=== PATIENT | female | born 1995 | race African-American/Black ===

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

== ENCOUNTER → 2017-04-03 | Outpatient (CLI) | payer BC, OTHER | END | disposition home or self-care (01) | LOC: C.RDSM 11:56 | PROVIDERS: ATTEND Physical Medicine & Rehabilitation Sports Medicine | DX: M25.571 Pain in right ankle and joints of right foot (principal) ==

== ENCOUNTER → 2017-04-07 | Day surgery (SDC) | payer OTHER, BC ==
[2017-04-06 11:47] VITALS: Ht 167.6 cm; Wt 65.9 kg
[~2017-04-07] VITALS: Ht 167.6 cm; Wt 65.9 kg
[~2017-04-07] MED LIST changes: +ATROPINE SULFATE 0.1 MG/ML 5ML SYR IV PRN; +BUPIVACAINE/EPINEPHRINE 0.25% 10 ML VIAL ONE; +CEFAZOLIN 2000 MG/60 ML D5W IV SCH; +CEFTRIAXONE SOD 1 GM VIAL ONE; +CEFTRIAXONE SOD 2 GM VIAL IV ONE; +DEXAMETHASONE SOD INJ 4 MG/ML VIAL ONE; +EpHEDrine SULFATE INJ 50 MG/ML AMP IV PRN; +FENTANYL CITRATE INJ 50 MCG/1 ML 2 ML VIAL IV PRN; +FENTANYL CITRATE INJ 50 MCG/1 ML 2 ML VIAL ONE; +FLUMAZENIL 0.1 MG/1 ML 10 ML VIAL IV PRN; +HYDROmorphone INJ 1 MG/ML SYR ONE; +HYDROmorphone INJ 2 MG/ML SYR/VIAL IV PRN; +LABETALOL HCL IV 5 MG/ML 20ML IV PRN; +LACTATED RINGER'S 1000ML 1,000 ML IV SCH; +LIDOCAINE 2% 20 MG/ML 5ML SYR ONE; +LIDOCAINE HCL 2% 2 ML VIAL (20MG/ML) ONE; +MEPERIDINE HCL 25 MG/ML CARP IV PRN; +MIDAZOLAM HCL 1 MG/ML 2ML VIAL ONE; +NALOXONE HCL 0.4 MG/1 ML VIAL/CARP IV PRN; +ONDANSETRON INJ 2 MG/ML 2 ML VIAL IV PRN; +ONDANSETRON INJ 2 MG/ML 2 ML VIAL ONE; +OXYCODONE/ACETAMINOPHEN 5-325 TAB PO PRN; +PHENYLEPHRINE 100MCG/ML 5ML SYR IV PRN; +PROPOFOL IV EMULSION 10 MG/ML 20 ML VIAL IV ONE; +ROPIVACAINE 0.5% 5 MG/ML 30 ML VIAL ONE; +SCOPOLAMINE 1.5 MG TDSY TD ONE; +SODIUM CHLORIDE 0.9% 1000ML 1,000 ML IV SCH
--- NOTE | 2017-04-07 13:50 | [facility] Post Operative Brief Note ---
Immediate Operative Summary Operative Date Apr 07, 2017. Pre-Operative Diagnosis bimalleolar ankle fracture Post-Operative Diagnosis same Procedure(s) Performed ORIF medial and lateral malleoli Surgeon bela Professional Poker Player Surgeon(s) jose manuel Estimated Blood Loss 25cc Findings see op note Fluids (cc crystalloids) 1100cc Specimens none Drains none Anesthesia LMA/block Complication(s) None Disposition Recovery Room / PACU
--- NOTE | 2017-04-07 13:50 | History & Physical Bridge Note ---
H&P Re-Evaluation Bridge Note: I have examined the patient, reviewed the History & Physical and in the interval since the performance of the History & Physical I have noted the following changes of clinical significance: No changes noted
--- NOTE | 2017-04-07 13:51 | Discharge Instructions ---
Discharge Instructions Date of Service Apr 07, 2017. Visit Reason for Visit: Right Ankle Bimalleolar Fracture Dislocation Discharge Discharge Diagnosis / Problem: same Discharge Goals Goal(s): Decrease discomfort, Improve function Medications Stopped Medications Name(s): na Restart Stopped Medication(s): use scripts as directed Activity Recommendations Activity Limitations: as noted below Lifting Limitations: until after follow-up appointment Exercise/Sports Limitations: until after follow-up appointment May Resume Sexual Activity: after follow-up appointment Shower/Bathe: keep incision dry Driving or Machine Use: Weightbearing Status: Right non-weightbearing Anesthesia . Post Anesthesia Instructions: If you have had General Anesthesia or IV Sedation: * Do not drive today. * Resume driving when surgeon permits. * Do not make important decisions or sign legal documents today. * Call surgeon for: 1. Temperature elevations greater than 101 degrees F. 2. Uncontrollable pain. 3. Excessive bleeding. 4. Persistent nausea and vomiting. 5. Medication intolerance (nausea, vomiting or rash). * For nausea and vomiting use only clear liquids such as: tea, soda, bouillon until nausea subsides, then gradually increase diet as tolerated. * If you have any concerns or questions, call your surgeon's office. If physician is unavailable and it is an emergency, call 911 or go to the nearest emergency room. . Instructions / Follow-Up Instructions / Follow-Up DIET: * Resume previous diet. MEDICATIONS: * Please take your prescriptions as instructed at your pre-op appointment and/ or see medication discharge instructions listed above. * If concerns develop, call your physician's office at . SPECIAL CARE INSTRUCTIONS: * Ice/Elevate as instructed. * Keep dressing clean, dry, intact. * Your surgical extremity may be discolored due to prepping agents used on the skin. A bluish-green tint is a normal variant and should not cause alarm. Call your doctor at [phone] if: * Temperature above 101 degrees * Pain not relieved by pain medicine ordered * There is increased drainage or redness from any incision * You have any unanswered questions, problems or concerns. FOLLOW UP VISIT: * If not already scheduled, please call the office at to schedule a follow-up appointment. Diet Recommendations Recommended Home Diet: resume previous diet Procedures Procedures Performed: ORIF medial and lateral malleoli Pending Studies Studies pending at discharge: no Medical Emergencies . Who to Call and When: Medical Emergencies: If at any time you feel your situation is an emergency, please call 911 immediately. . Non-Emergent Contact Non-Emergency issues call your: Specialist Call Non-Emergent contact if: temperature is above 101.5, wound has increased drainage, wound has increased redness . . "Provider Documentation" section prepared by Anurag Barry. .
[2017-04-07 15:03] VITALS: TEMP 36.6
--- NOTE | 2017-04-07 15:27 | OPERATIVE REPORT ---
DATE OF OPERATION: 04/07/2017 PREOPERATIVE DIAGNOSIS: Bimalleolar ankle fracture dislocation, right lower extremity. POSTOPERATIVE DIAGNOSIS: Same. OPERATION PERFORMED: Open reduction internal fixation medial malleolus distal fibula with TightRope syndesmosis augmentation. SURGEON: Dr. Barry. CLOTH LAMINATING SUPERVISOR: Malachi Rogel PA-C. No resident or fellow available. 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. At this point in time, she was evaluated there and sent back here for her ankle to be fixed at her request. Preoperative assessment was consistent with a Muniz B fracture pattern. Options were discussed concerning potential need for syndesmosis fixation and try to avoid screw fixation if possible. She is getting ready for her upcoming season. She takes no medications, is on no control pills. DVT prophylaxis will be with Lovenox for several weeks postop. She will be strict nonweightbearing postop. Operation as noted above is open reduction internal fixation bimalleolar ankle fracture with a TightRope syndesmosis fixation. OPERATION AND FINDINGS: PROCEDURE: The patient appropriately identified, site verified, consent verified, 2 grams of Ancef confirmed as being given. The right lower extremity was prepped and draped in the usual routine fashion. Tourniquet was inflated to 275 mmHg after exsanguination of limb with a rubber Esmarch bandage for a total of approximately 80 minutes. Medial side was approached first. A curved incision was made over the anteromedial aspect of the medial malleolar fracture. The fracture was identified. It was elevated and opened. The periosteum that was incarcerated was elevated and the fracture was curetted clean and then temporarily provisionally fixed anatomically with 2 K-wires. Care was taken to protect the saphenous vein and nerve. Once it was verified that it was anatomically reduced two 4.0 partially threaded cancellous screws with washers were placed in the medial malleolus and fixed the fracture fragment anatomically and compressed it extremely well. This area was then irrigated and then closed using 2-0 Vicryl for the periosteum and full thickness horizontal mattress 3-0 nylon sutures for skin. The distal fibula was then approached through a straight lateral incision, full thickness flaps raised, fracture identified. It was curetted clean and then reduced and held with a clamp and then a 3.5 cortical screw anterior to posterior was placed and reduced the fracture anatomically and held it into position. An additional screw was then placed as well as 2 interfragmentary screws front to back varying in length from 16-18 mm. A one-third tubular 8-hole plate was then placed on the lateral aspect of the distal fibula, contoured and secured with 2 cancellous screws in the distal fragment with excellent purchase and then 3 cortical screws proximally. Once this was done, a cotton test was performed. It did not reveal any marked movement; however, due to high demand nature of the athlete a TightRope was placed through the plate through one of the holes in order to help assist any type of ligamentous sprain pattern that was there that would not be of surgical grade but of high grade enough to warrant some additional protection. Once this was done, there was no undue tension on the syndesmosis. The ankle could be dorsiflexed and plantarflexed with no issues. Strain test under fluoro revealed anatomic reductions and good stability of both fracture fragments. The wounds were irrigated with saline. Some periosteum and soft tissue closed over plate laterally with 2-0 Vicryl, 2-0 Vicryl and 2-0 plain for the subcutaneous tissue and stainless steel clips for skin laterally. Appropriate soft tissue dressing was applied. The patient will be nonweightbearing. DVT prophylaxis starts with Lovenox tomorrow. She will follow up in roughly 2-3 weeks for staple and suture removal. Keep present splint on the entire time. Pain management will be with Percocet and/or Ultram. SHE IS ALLERGIC TO NONSTEROIDALS. I attest to the content of the Intraoperative Record and any orders documented therein. Any exception s are noted below.
[2017-04-07 15:45] VITALS: BP 118/69; PULSE 75; O2SAT 100
--- NOTE | 2017-04-07 15:49 | Anesthesia Progress Nt - [facility] ---
Anesthesia Post Op Note Date & Time Apr 07, 2017 at 15:49 Vital Signs Pain Intensity: 4 Vital Signs Past 12 Hours Date Time Temp Pulse Resp B/P (MAP) Pulse Ox O2 Delivery O2 Flow Rate FiO2 04/07/17 15:45 75 20 118/69 (85) 100 Room Air 04/07/17 15:03 36.6 72 20 117/72 (87) 98 Room Air 04/07/17 15:00 120/68 04/07/17 14:58 61 11 97 04/07/17 14:58 61 11 04/07/17 14:57 64 11 98 04/07/17 14:57 65 11 04/07/17 14:56 136/72 04/07/17 14:55 36.5 71 20 136/72 98 Room Air 04/07/17 14:53 64 15 04/07/17 14:53 66 15 99 04/07/17 14:51 134/73 04/07/17 14:48 62 12 04/07/17 14:48 62 12 100 04/07/17 14:45 133/73 04/07/17 14:43 70 13 100 04/07/17 14:43 71 13 04/07/17 14:40 125/69 04/07/17 14:38 61 12 04/07/17 14:38 60 12 100 04/07/17 14:35 122/65 04/07/17 14:33 57 13 04/07/17 14:33 57 13 100 04/07/17 14:30 116/63 04/07/17 14:28 57 15 04/07/17 14:28 57 15 100 04/07/17 14:25 122/69 04/07/17 14:23 60 14 04/07/17 14:23 62 14 100 04/07/17 14:20 126/71 04/07/17 14:18 63 17 04/07/17 14:18 63 17 100 04/07/17 14:15 122/70 04/07/17 14:13 57 17 100 04/07/17 14:13 58 17 04/07/17 14:10 130/83 04/07/17 14:08 11 04/07/17 14:08 81 11 04/07/17 14:05 144/83 04/07/17 14:03 62 15 100 04/07/17 14:03 63 15 8/8/17 14:00 128/72 04/07/17 13:58 79 18 04/07/17 13:58 80 18 99 04/07/17 13:56 134/79 04/07/17 13:54 127/81 04/07/17 13:53 36.5 80 14 134/79 100 Diffusion Mask 6 04/07/17 11:55 69 16 120/63 (82) 100 Diffusion Mask 5 04/07/17 11:50 62 16 109/59 (76) 100 Diffusion Mask 5 04/07/17 11:45 62 12 108/50 (69) 100 Diffusion Mask 5 04/07/17 11:40 62 16 108/50 (69) 100 Diffusion Mask 5 04/07/17 11:40 57 16 115/51 (72) 100 Diffusion Mask 04/07/17 11:36 66 12 124/66 (85) 100 Diffusion Mask 5 04/07/17 11:36 66 12 124/66 (85) 100 Diffusion Mask 5 04/07/17 11:12 81 12 116/61 (79) 98 Diffusion Mask 5 04/07/17 11:06 36.8 79 16 116/61 (79) 99 Room Air Notes Mental Status: alert / awake / arousable, participated in evaluation Pt Amnestic to Procedure: Yes Nausea / Vomiting: adequately controlled Pain: adequately controlled Airway Patency, RR, SpO2: stable & adequate BP & HR: stable & adequate Hydration State: stable & adequate Anesthetic Complications: no major complications apparent
--- NOTE | 2017-04-08 13:26 | [facility] Operative Report ---
Operative Report Operative Date Apr 07, 2017. Pre-Operative Diagnosis Right bimalleolar ankle fracture Post-Operative Diagnosis Right same Procedure(s) Performed Right ankle ORIF medial and lateral malleoli Surgeon bela Supervisor Malt House Surgeon(s) jose manuel Estimated Blood Loss 25cc Findings Right ankle bimalleolar fracture Fluids (cc crystalloids) 1100cc Specimens none Anesthesia Gen. plus regional block Complication(s) None Disposition Recovery Room / PACU Indications This 22-year-old -[place] female presented to the office with complaints of right ankle pain after injuring herself while playing basketball. Preoperative Imaging was obtained elsewhere. She elected to proceed with surgical intervention after being educated about potential risks and outcomes. Description of Procedure Patient was administered a regional block and then taken to the operating room where she was given general anesthesia. She was prepped and draped in usual sterile fashion. Please see Dr. Barry's operative report for specifics of the procedure. I was present for the entire case from initial patient positioning through final wound closure. Assistance was provided in tissue traction, hemostasis, fracture reduction, hardware placement, and final wound closure. Patient was taken to the recovery room in satisfactory condition. I attest to the content of the Intraoperative Record and any orders documented therein. Any exceptions are noted below.
== END | disposition home or self-care (01) ==
LOC: X.SURG 10:42
PROVIDERS: ATTEND Physical Medicine & Rehabilitation Sports Medicine
DX: S82.841A Displaced bimalleolar fracture of right lower leg, initial encounter for closed fracture (principal); W50.0XXA Accidental hit or strike by another person, initial encounter; Y93.67 Activity, basketball

== ENCOUNTER → 2017-05-06 | Outpatient (CLI) | payer BC, OTHER ==
[~2017-05-06] MED LIST changes: -ATROPINE SULFATE 0.1 MG/ML 5ML SYR IV PRN; -BUPIVACAINE/EPINEPHRINE 0.25% 10 ML VIAL ONE; -CEFAZOLIN 2000 MG/60 ML D5W IV SCH; -CEFTRIAXONE SOD 1 GM VIAL ONE; -CEFTRIAXONE SOD 2 GM VIAL IV ONE; -DEXAMETHASONE SOD INJ 4 MG/ML VIAL ONE; -EpHEDrine SULFATE INJ 50 MG/ML AMP IV PRN; -FENTANYL CITRATE INJ 50 MCG/1 ML 2 ML VIAL IV PRN; -FENTANYL CITRATE INJ 50 MCG/1 ML 2 ML VIAL ONE; -FLUMAZENIL 0.1 MG/1 ML 10 ML VIAL IV PRN; -HYDROmorphone INJ 1 MG/ML SYR ONE; -HYDROmorphone INJ 2 MG/ML SYR/VIAL IV PRN; -LABETALOL HCL IV 5 MG/ML 20ML IV PRN; -LACTATED RINGER'S 1000ML 1,000 ML IV SCH; -LIDOCAINE 2% 20 MG/ML 5ML SYR ONE; -LIDOCAINE HCL 2% 2 ML VIAL (20MG/ML) ONE; -MEPERIDINE HCL 25 MG/ML CARP IV PRN; -MIDAZOLAM HCL 1 MG/ML 2ML VIAL ONE; -NALOXONE HCL 0.4 MG/1 ML VIAL/CARP IV PRN; -ONDANSETRON INJ 2 MG/ML 2 ML VIAL IV PRN; -ONDANSETRON INJ 2 MG/ML 2 ML VIAL ONE; -OXYCODONE/ACETAMINOPHEN 5-325 TAB PO PRN; -PHENYLEPHRINE 100MCG/ML 5ML SYR IV PRN; -PROPOFOL IV EMULSION 10 MG/ML 20 ML VIAL IV ONE; -ROPIVACAINE 0.5% 5 MG/ML 30 ML VIAL ONE; -SCOPOLAMINE 1.5 MG TDSY TD ONE; -SODIUM CHLORIDE 0.9% 1000ML 1,000 ML IV SCH; -TRAM-453 PO
== END | disposition home or self-care (01) ==
LOC: C.RDSM 04-20 09:52
PROVIDERS: ATTEND Physical Medicine & Rehabilitation Sports Medicine
DX: S82.842D Displaced bimalleolar fracture of left lower leg, subsequent encounter for closed fracture with routine healing (principal); X58.XXXD Exposure to other specified factors, subsequent encounter

== ENCOUNTER → 2017-10-02 | Outpatient (CLI) | payer BC, OTHER | END | disposition home or self-care (01) | LOC: C.RDSM 16:33 | PROVIDERS: ATTEND Physical Medicine & Rehabilitation Sports Medicine | DX: S82.842D Displaced bimalleolar fracture of left lower leg, subsequent encounter for closed fracture with routine healing (principal); X58.XXXD Exposure to other specified factors, subsequent encounter ==

== ENCOUNTER → 2017-11-17 | Day surgery (SDC) | payer BC, OTHER ==
[2017-11-16 08:04] VITALS: Ht 167.6 cm; Wt 65.9 kg
[~2017-11-17] VITALS: Ht 167.6 cm; Wt 65.9 kg
[~2017-11-17] MED LIST changes: +ATROPINE SULFATE 0.1 MG/ML 5ML SYR IV PRN; +BUPIVACAINE 0.5 % 5 MG/1 ML MPF 30ML VIAL ONE; +CEFAZOLIN 2000MG IV PUSH 15 ML IV SCH; +DEXAMETHASONE SOD INJ 4 MG/ML VIAL ONE; +EpHEDrine SULFATE INJ 50 MG/ML AMP IV PRN; +FENTANYL CITRATE INJ 50 MCG/1 ML 2 ML VIAL IV PRN; +FENTANYL CITRATE INJ 50 MCG/1 ML 2 ML VIAL ONE; +HYDROCODONE/ACETAMIN 5/325MG TAB ONE; +HYDROCODONE/ACETAMIN 5/325MG TAB PO PRN; +LACTATED RINGER'S 1000ML 1,000 ML IV SCH; +LIDOCAINE HCL 2% 2 ML VIAL (20MG/ML) ONE; +MIDAZOLAM HCL 1 MG/ML 2ML VIAL ONE; +ONDANSETRON INJ 2 MG/ML 2 ML VIAL IV PRN; +ONDANSETRON INJ 2 MG/ML 2 ML VIAL ONE; -OXYC-57 PO; +PROMETHAZINE HCL INJ 6.25 MG in SODIUM CHLORIDE 0.9% 50ML 50 ML IV PRN; +PROPOFOL IV EMULSION 10 MG/ML 20 ML VIAL IV ONE; +SODIUM CHLORIDE 0.9% 1000ML 1,000 ML IV SCH
--- NOTE | 2017-11-17 06:59 | History & Physical Bridge Note ---
H&P Re-Evaluation Bridge Note: I have examined the patient, reviewed the History & Physical and in the interval since the performance of the History & Physical I have noted the following changes of clinical significance: consent obtained.No changes noted
--- NOTE | 2017-11-17 07:00 | Discharge Instructions ---
Discharge Instructions Date of Service Nov 17, 2017. Visit Reason for Visit: Right Ankle Retained Hardware; S/P Fracture Discharge Discharge Diagnosis / Problem: same Discharge Goals Goal(s): Decrease discomfort Medications Stopped Medications Name(s): na Restart Stopped Medication(s): use all scripts as directed on labels Activity Recommendations Activity Limitations: as noted below Lifting Limitations: until after follow-up appointment Exercise/Sports Limitations: until after follow-up appointment May Resume Sexual Activity: after follow-up appointment Shower/Bathe: keep incision dry Weightbearing Status: Right weightbearing (as tolerated) Anesthesia . Post Anesthesia Instructions: If you have had General Anesthesia or IV Sedation: * Do not drive today. * Resume driving when surgeon permits. * Do not make important decisions or sign legal documents today. * Call surgeon for: 1. Temperature elevations greater than 101 degrees F. 2. Uncontrollable pain. 3. Excessive bleeding. 4. Persistent nausea and vomiting. 5. Medication intolerance (nausea, vomiting or rash). * For nausea and vomiting use only clear liquids such as: tea, soda, bouillon until nausea subsides, then gradually increase diet as tolerated. * If you have any concerns or questions, call your surgeon's office. If physician is unavailable and it is an emergency, call 911 or go to the nearest emergency room. . Instructions / Follow-Up Instructions / Follow-Up DIET: * Resume previous diet. MEDICATIONS: * Please take your prescriptions as instructed at your pre-op appointment and/ or see medication discharge instructions listed above. * If concerns develop, call your physician's office at . SPECIAL CARE INSTRUCTIONS: * Ice/Elevate as instructed. * Keep dressing clean, dry, intact. * Your surgical extremity may be discolored due to prepping agents used on the skin. A bluish-green tint is a normal variant and should not cause alarm. Call your doctor at [phone] if: * Temperature above 101 degrees * Pain not relieved by pain medicine ordered * There is increased drainage or redness from any incision * You have any unanswered questions, problems or concerns. FOLLOW UP VISIT: * If not already scheduled, please call the office at to schedule a follow-up appointment. Diet Recommendations Recommended Home Diet: resume previous diet Procedures Procedures Performed: removal of deep hardware Pending Studies Studies pending at discharge: no Medical Emergencies . Who to Call and When: Medical Emergencies: If at any time you feel your situation is an emergency, please call 911 immediately. . Non-Emergent Contact Non-Emergency issues call your: Specialist Call Non-Emergent contact if: temperature is above 101.5, wound has increased drainage, wound has increased redness . . "Provider Documentation" section prepared by Anurag Barry. .
--- NOTE | 2017-11-17 09:14 | [facility] Post Operative Brief Note ---
Immediate Operative Summary Operative Date Nov 17, 2017. Pre-Operative Diagnosis Right Ankle Retained Hardware S/P Fracture Post-Operative Diagnosis Same Procedure(s) Performed Right Ankle Hardware Removal Surgeon Dr. Barry [employer] Farmer Surgeon(s) Anu Rogel PA-C Estimated Blood Loss Trace Findings Consistent with Post-Op Diagnosis Fluids (cc crystalloids) 1300cc Specimens None Drains None Anesthesia Type General Complication(s) none Disposition Accompanied Pt To Recovery: no Disposition: Recovery Room / PACU
--- NOTE | 2017-11-17 09:23 | [facility] Operative Report ---
Operative Report Operative Date Nov 17, 2017. Pre-Operative Diagnosis Right Ankle Retained Hardware S/P Fracture Post-Operative Diagnosis Same Procedure(s) Performed Right Ankle Hardware Removal Surgeon Dr. Barry Ken[employer] Dealer Surgeon(s) Anu Rogel PA-C Estimated Blood Loss Trace Findings Retained hardware right ankle Fluids 1300cc Specimens None Drains None Anesthesia Type General Complication(s) none Disposition no Recovery Room / PACU Indications This 22-year-old -English female presented to the office with complaints of tenderness and sensitivity around her previous ankle ORIF hardware. She had tried conservative care measures without improvement. She elected to proceed with surgical intervention in hopes of alleviating her discomfort. Description of Procedure Patient was taken to the operating room where she was given general anesthesia and local anesthetic. She was prepped and draped in usual sterile fashion. Please see Dr. Barry's operative report for specifics of the procedure. I was present for the entire case from initial patient positioning through final wound closure. Assistance was provided in tissue retraction, hemostasis, hardware removal, in final wound closure. Patient was taken to the recovery room in satisfactory condition. I attest to the content of the Intraoperative Record and any orders documented therein. Any exceptions are noted below.
--- NOTE | 2017-11-17 09:38 | OPERATIVE REPORT ---
DATE OF OPERATION: 11/17/2017 SURGEON: Dr. Barry. ASISSTANT: Malachi Rogel PA-C. No resident or fellow available. PREOPERATIVE DIAGNOSIS: Status post bimalleolar ankle fracture dislocation, right lower extremity. POSTOPERATIVE DIAGNOSIS: Same. OPERATION PERFORMED: Removal of deep hardware medial and lateral and syndesmosis TightRope. PERIOPERATIVE SITUATION: Medically cleared female who has had ankle fracture dislocation bimalleolar that was treated as above. She went through whole basketball season with no issues, competed well. Has some pain over the hardware and wishes to have all the hardware removed for both physical and mental reasons. Options were discussed with her in detail. She wanted to proceed with surgical treatment and removal of all hardware. OPERATION: The patient was properly identified, site verified, consent verified, antibiotics confirmed as being given. The right lower extremity was prepped and draped in usual routine fashion. Tourniquet inflated to 275 mmHg after exsanguination of limb with a rubber Esmarch bandage for a total of about 28 minutes. Prior to making incisions and inflating the tourniquet, the areas were injected with 0.5% Marcaine plain, total volume of about 18 mL. The lateral incision was opened first. Skin incision made. All scar tissue dissected down to the plate and then the plate identified and then subperiosteally dissected all the way up from distal to proximal. All screws identified, they were then removed. The TightRope was then incised and then the plate removed. Rongeuring around on the holes was made and then the area irrigated and closed with 2-0 plain and stainless steel clips. Using fluoroscopic control, the distal incision medially was then identified, the 2 screws identified and then incision made over that, blunt dissection down to the screws. The screw heads and washers were then identified, they were then removed without difficulty. This was then irrigated and closed with 2-0 plain and stainless steel clips. A separate stab incision was then made after fluoroscopic localization of the medial side of the TightRope. Blunt dissection down to the TightRope was made and then this was removed, removing all of the metal and the sutures. The wound was then irrigated and closed with 2-0 plain and stainless steel clip. Triplane fluoro revealed stable ankle mortise, stable fractures, all healed. At this point in time, she can be weightbearing to tolerance with the boot on and advance activities over 6-8 weeks to normal. She should wear an ankle brace to protect the screw holes for about 4-5 months. She was all informed of this. Estimated blood loss trace. Crystalloid 300 mL. DVT prophylaxis with aspirin. I attest to the content of the Intraoperative Record and any orders documented therein. Any exception s are noted below.
[2017-11-17 10:17] VITALS: TEMP 36.2
--- NOTE | 2017-11-17 11:02 | Anesthesia Progress Nt - [facility] ---
Anesthesia Post Op Note Date & Time Nov 17, 2017 at 11:01 Vital Signs Pain Intensity: 5.0 Vital Signs Past 12 Hours Date Time Temp Pulse Resp B/P (MAP) Pulse Ox O2 Delivery O2 Flow Rate FiO2 11/17/17 10:17 36.2 82 20 110/71 (84) 98 Room Air 11/17/17 10:11 116/77 11/17/17 10:09 52 16 100 11/17/17 10:09 52 16 11/17/17 10:06 108/64 11/17/17 10:04 51 12 11/17/17 10:04 52 12 99 11/17/17 10:01 111/68 11/17/17 09:59 56 12 11/17/17 09:59 56 12 99 11/17/17 09:58 54 12 99 11/17/17 09:58 53 12 11/17/17 09:56 104/69 11/17/17 09:53 54 12 98 11/17/17 09:53 55 12 11/17/17 09:51 36.8 54 12 114/67 100 Room Air 11/17/17 09:51 114/67 11/17/17 09:48 56 7 100 11/17/17 09:48 54 7 11/17/17 09:47 53 18 11/17/17 09:47 50 18 100 11/17/17 09:46 105/57 11/17/17 09:42 50 17 100 11/17/17 09:42 50 17 11/17/17 09:41 111/65 11/17/17 09:40 49 15 11/17/17 09:40 49 15 100 11/17/17 09:36 133/80 11/17/17 09:35 63 16 100 18 09:35 60 16 18 09:31 116/81 18 09:30 62 17 100 18 09:30 60 17 11/17/17 09:29 56 15 11/17/17 09:29 56 15 100 18 09:26 116/75 18 09:24 52 14 100 18 09:24 52 14 11/17/17 09:21 124/80 2018 09:20 125/81 11/17/17 09:19 36.4 64 12 125/81 100 Diffusion Mask 6 11/17/17 06:41 36.7 65 16 141/81 (101) 99 Room Air Notes Mental Status: alert / awake / arousable, participated in evaluation Pt Amnestic to Procedure: Yes Nausea / Vomiting: adequately controlled Pain: adequately controlled Airway Patency, RR, SpO2: stable & adequate BP & HR: stable & adequate Hydration State: stable & adequate Anesthetic Complications: no major complications apparent
[2017-11-17 11:05] VITALS: BP 116/74; PULSE 53; O2SAT 99
== END | disposition home or self-care (01) ==
LOC: X.SURG 06:50
PROVIDERS: ATTEND Physical Medicine & Rehabilitation Sports Medicine
DX: T84.84XA Pain due to internal orthopedic prosthetic devices, implants and grafts, initial encounter (principal); Y83.1 Surgical operation with implant of artificial internal device as the cause of abnormal reaction of the patient, or of later complication, without mention of misadventure at the time of the procedure

== ENCOUNTER → 2017-12-21 | Outpatient (CLI) | payer BC, OTHER ==
--- NOTE | 2017-12-21 10:00 | DIAGNOSTIC IMAGING REPORT ---
R ANKLE MIN 3 VIEWS CLINICAL HISTORY: BIMALLEOLAR RIGHT ANKLE FX COMPARISON: October 02, 2017 DISCUSSION: There is been interval removal of the lateral fibular plate and medial malleolar screws. There are few granular metallic opacities present within the distal tibia. Screw tracks are visualized. There are no acute fractures. The ankle mortise appears intact. IMPRESSION: Postsurgical changes status post hardware removal Electronically signed by: Tony Corey M.D. 12/21/2017 9:58 AM Dictated Date/Time: 12/21/2017 9:57 AM
== END | disposition home or self-care (01) ==
LOC: C.RDSM 15:00
PROVIDERS: ATTEND Internal Medicine
DX: S82.842D Displaced bimalleolar fracture of left lower leg, subsequent encounter for closed fracture with routine healing (principal); X58.XXXD Exposure to other specified factors, subsequent encounter

== ENCOUNTER → 2018-03-19 | Outpatient (CLI) | payer BC, OTHER | END | disposition home or self-care (01) | LOC: C.RDSM 08:27 | PROVIDERS: ATTEND Physical Medicine & Rehabilitation Sports Medicine | DX: M25.571 Pain in right ankle and joints of right foot (principal) ==